=== PATIENT | male | born 1950 | race Caucasian/White ===

== ENCOUNTER 2018-02-02 10:15 | Day surgery (SDC) | payer MEDICARE ==
[~2018-02-02] VITALS: Ht 185.4 cm; Wt 103.5 kg
[~2018-02-02 10:15] MED LIST: ALBU0.086 INH; ASPI81TA82 PO; CLOP75 PO; DILTCD240 PO; FISH1000 PO; FLEX10TA PO; FLON0.053; FURO1TAB93 PO; IPRA18I INH; LISI2.5T55 PO; OMEP20TA PO; POTA-243 PO; PROT40TA PO; REST15CA PO; TAMS0.4C67 PO; TIOT18I INH; TRAM50TA PO; VITA500S3 PO
[2018-02-02] MEDS ORDERED: IOHEXOL 350 MG/ML 50 ML BTL (for Cath Lab) OTHER ONE (10:16)
[2018-02-02] MEDS ORDERED: NS 1000P @30 MLS/HR (KVO) IV SCH (10:45)
[2018-02-02 10:52] VITALS: BP 165/84; PULSE 57; RESP 17; O2SAT 98
[2018-02-02] MEDS ORDERED: TRAM50TA PO (11:09)
[2018-02-02] MEDS ORDERED: CYCL10TA PO (11:09)
[2018-02-02] MEDS ORDERED: NITR0.4S SL (11:09)
[2018-02-02] MEDS ORDERED: TAMS0.4C4 PO (11:09)
[2018-02-02] MEDS ORDERED: SIMV10TA PO (11:09)
[2018-02-02] MEDS ORDERED: RANI150T PO (11:09)
[2018-02-02] MEDS ORDERED: FLUT1SPR5 (11:09)
[2018-02-02] MEDS ORDERED: TEMA15CA PO (11:09)
[2018-02-02] MEDS ORDERED: AMLO5TAB2 PO (11:09)
[2018-02-02] MEDS ORDERED: ASPI-516 CHEW (11:09)
[2018-02-02] MEDS ORDERED: ALBU0.08 NEB (11:09)
[2018-02-02] MEDS ORDERED: HEPARIN-NS/PF INJ 500 ML ONE (13:09)
[2018-02-02] MEDS ORDERED: MIDAZOLAM HCL 2 MG/2 ML VIAL ONE ×2 (13:10→13:15)
[2018-02-02] MEDS ORDERED: NITROGLYCERIN INJ 5 ML ONE (13:10)
[2018-02-02] MEDS ORDERED: HEPARIN SODIUM - IV 10,000 UNITS/10 ML VIAL ONE (13:10)
--- NOTE | 2018-02-02 13:48 | CATHPROC ---
[facility] HIS Report Study Information Study Number Admission Scheduled Start Study Start [id number] Feb 02 2018 10:15AM 02/02/2018 Feb 02 2018 1:02PM [facility] Cardiac Catheterization Admit Source Facility Department Other [facility] - [facility] Physician and Clinical Staff Initial Michael Sifuentes Ophthalmic Surgical Assistant Ssuan Ellington,KIRT Recorder Rosie De La Paz ,BSN Scrub Deysi RinconRT(R) Procedures Performed Procedure Location (Site) Vessel Name Coronary Angiograms LCA Left Coronary Coronary Angiograms RCA Right Coronary L Heart Cath Equipment Time Data Warehouse Manager Description Size Mfg Part Number Used/Scraped TRANSDUCER, TRUWAVE [id number] 13:16 CASTILLO NOLAN * Used W/STOCKCOCK *[id number] *[id number] *[id number] 13:27 [employer]IG/[employer]ICAL ANGIOSEAL, FR6 VIP FR 6 Used *[id number] 13:16 [employer] BLANKET,WARM AIR CCL * Used *[id number] 13:16 [employer] PACK, CCL CUSTOM * Used *[id number] 13:16 [employer] PACER PEN, SKIN DUAL W/ RULER * Used *[id number] 13:16 [employer] MEDICAL SHEATH, FR6.5 PRELUDE 23CM FR 6.5 Used [id number] 13:16 [employer] MEDICAL WIRE, 3MMJ .035 180CM 180CM Used *[id number] 13:16 [employer]AMIC MANIFOLD, 4 PORT * Used *[id number] 13:16 [employer] OMNIPAQUE, 350 MG, 100ML 100ML [id number] Used Equipment Model, Serial, Lot Number and Expiration Data Description Model Number Serial Number Lot Number Expiration Date ANGIOSEAL, FR6 VIP [id number] 09-14-2018 History: Current Medications Medication Dosage/Unit Route Frequency Last Date/Time Taken ASA 81 mg 02/01/2018 History: Allergies Allergy Reaction No Known Allergies History: Risk Factors Family History of Hypertension Dyslipidemia Premature CAD Yes Yes No Prior Valve Prior PCI Prior PCIDate Prior CABG Surgery No Yes 03/15/2013 No Cerebrovascular Peripheral Artery Chronic Lung On Dialysis Diabetes Diabetes Therapy Disease Disease Disease No Yes No Yes Yes None History: Stress Tests Stress or Imaging Studies Performed Yes Standard Exercise Stress Stress Test Result Test Yes Positive History: NM/CV Data Previous Cath Date 03/15/2014 History: Other Current Smoker Method Quit Packs a Day Years Used Pack Years No Cigarettes 36 Years Ago 2 25 50 Labs Hgb (g/dl) Hct (%) WBC (l/cumm) Platelets (thousands) 11.60-17.00 35.00-51.00 4.00-11.00 150.00-450.00 14.0 43.5 10.5 333 Glucose (mg/dl) BUN (mg/dl) Creatinine (mg/dl) BUN:Creatinine (1:x) 74.00-106.00 7.00-18.00 0.50-1.30 10.00-20.00 103 13 0.7 18.6 Na (meq/l) K (meq/l) 136.00-145.00 3.50-5.10 136 4.3 INR (PTT:PT) 0.90-1.10 1 CPK-MB (ng/ML) 0.50-3.60 Not Drawn Medication Medication Total Dose (Bolus/Oral) Medication Total Dosage/Unit 1% XYLOCAINE 20 mL NITROGLYCERIN S/L 0.4 mg VERSED 3 mg Medications (Bolus/Oral) Medication Time Given Dosage/Unit Administered By Reason VERSED 02/02/2018 1:09:10 PM 2 mg Susan Ellington 2 mg VERSED given by Susan Ellington RN via Peripheral IV. Ordered by Michael Olson. 1% XYLOCAINE 02/02/2018 1:14:25 PM 20 mL Susan Ellington 20 mL 1% XYLOCAINE given by Susan Ellington RN in Right Groin via Subcutaneous. Ordered by Michael Olson. VERSED 02/02/2018 1:14:35 PM 1 mg Susan Ellington 1 mg VERSED given by Susan Ellington RN via Peripheral IV. Ordered by Michael Olson. NITROGLYCERIN S/L 02/02/2018 1:35:47 PM 0.4 mg Susan Ellington 0.4 mg NITROGLYCERIN S/L given in lab by Susan Ellington RN via Sublingual. Ordered by Dick Olson. Medication (Drip) Medication Time Given Dosage/Unit Concentration/Unit Diluent (ml) Solution IV Solutions 02/02/2018 1:08:43 PM 50 mL (IV) NaCl .9 IV Solutions given by Susan Ellington RN via Peripheral IV. Pump/Drip Flow using NaCl .9. Ordered by Michael Olson. at KVO Initial Case Assessment Cardiovascular HR Rhythm NIBP Chest Pain 58 sb 158/87 0 Edema Present Skin color Skin None Normal Warm Dry Circulatory - Right Pulses Dorsalis Pedis Femoral 2 2 Scale (0,1,2,3,4,d) Scale (0,1,2,3,4,d) Circulatory - Lower Extremities Color Lower Right Color Lower Left Normal Normal Neurological State Oriented to time-place- Alert Moves all extremities person Respiration - General Respiration Rate SpO2 (%) (B/min) 17 96 Final Case Assessment Cardiovascular HR Rhythm NIBP Chest Pain 76 sr 181/90 0 Edema Present Skin color Skin None Normal Warm Dry Circulatory - Right Pulses Dorsalis Pedis Femoral 2 2 Scale (0,1,2,3,4,d) Scale (0,1,2,3,4,d) Circulatory - Lower Extremities Color Lower Right Color Lower Left Normal Normal Neurological State Oriented to time-place- Alert Moves all extremities person Respiration - General Respiration Rate SpO2 (%) (B/min) 18 95 Chronological Log Time Study Chronological Log 12:58:37 Patient arrived via Bed. 12:58:54 MD arrived. 13:01:46 Patient Name, D.O.B, / Armband Verified By R.N. 13:01:47 Consent signed by the physician and the patient and verified by the [facility] staff. 13:01:48 Pre-op and post- op instructions given; patient acknowledges understanding of instructions. 13:01:51 Patient has been NPO for More than 6Hrs. 13:01:51 Skin Breakdown- scabs to BUE Vitals capture started with the following parameters, Patient=Adult, Interval=5 min, Initial Pr oewtfr=167 mmHg, 13:03:36 Deflation Rate=5 mmHg, Cuff placed on Left Arm 13:05:00 HR=57 bpm, MUDH=005/87 mmhg, SpO2=99.0 %, Resp=17 B/min, Pain=0, Blank=10, Curran=2 Assessment: Initial Case, HR=58 BPM, Rhythm=sb, QYDW=465/87 mmhg, Chest Pain=0, Edema=None, Col or=Normal, Skin = Warm, Dry Right Pulses: Arik Ped=2, Femoral=2 13:06:11 Lower Right Extremities: Color=Normal Lower Left Extremities: Color=Normal Neurological: State=Alert, Ox3, ESPARZA Respiration: Resp=17 B/min, SpO2=96 % 13:06:31 A # 20 IV was noted in the Antecubital (left). Grade = 0 IV Solutions given by Susan Ellington RN via Peripheral IV. Pump/Drip Flow using NaCl .9. Orde red by Michael Olson. 13:08:43 at KVO 13:08:58 Bilateral groins prepped with 2% chlorhexidine, and draped after a 3 minute waiting time. 13:09:10 2 mg VERSED given by Susan Ellington RN via Peripheral IV. Ordered by Michael Olson. 13:09:22 HR=57 bpm, DTPY=683/71 mmhg, SpO2=97.0 %, Resp=24 B/min, Pain=0, Blank=10, Curran=2 13:12:09 History and physical on the chart or being dictated. 13:13:16 Verbal Stimulation=2 Physical Stimulation=2 Airway=2 Respiration=2 TOTAL=8. (0=absent, 1=li mited, 2=present) 13:13:26 Pressure channel 1 zeroed. Time Out. Correct patient, correct procedure, correct physician, labs, allergies, and equipment verified with chemical lab supervisor 13:14:20 team present. Fire risk assesment completed (see hard stop sheet for coding). Time Out Conc urred by MD and individual staff in procedure. 13:14:21 HR=56 bpm, LAHP=389/72 mmhg, SpO2=96.0 %, Resp=26 B/min, Pain=0, Blank=10, Curran=2 13:14:23 Case Start 13:14:25 20 mL 1% XYLOCAINE given by Susan Ellington RN in Right Groin via Subcutaneous. Ordered by Michael Olson. 13:14:35 1 mg VERSED given by Susan Ellington RN via Peripheral IV. Ordered by Michael Olson. 13:17:37 Access site was Right Femoral Artery. 13:17:50 A SHEATH, FR6.5 PRELUDE 23CM FR 6.5 was advanced into the Fem Art (right) using the Percuta neous technique. A JL 4.0 INFINITI CATHETER FR 6 was advanced over a wire. OMNIPAQUE, 350 MG, 100ML 100ML was us ed for 13:18:29 injections. 13:18:49 Reference ECG taken Recorded Pressure: Ao, HR=56, Condition=Condition 1 13:19:13 (Aorta) Ao 151/67/102 13:19:22 HR=55 bpm, IULM=972/76 mmhg, SpO2=95.0 %, Resp=14 B/min, Pain=0, Blank=10, Curran=2 13:19:40 The LCA was injected and visualized at various angles. OMNIPAQUE, 350 MG, 100ML 100ML used . After removing the current catheter a JR 4.0 INFINITI CATHETER FR 6 was advanced over a WIRE, 3 MMJ .035 180CM 13:21:54 180CM. 13:23:04 The RCA was injected and visualized at various angles. OMNIPAQUE, 350 MG, 100ML 100ML used . 13:23:49 Catheter was removed 13:24:56 HR=77 bpm, XIOE=673/94 mmhg, SpO2=95.0 %, Resp=21 B/min, Pain=0, Blank=10, Curran=2 13:26:11 An injection in the Fem Art (right) was made through the SHEATH, FR6.5 PRELUDE 23CM FR 6.5. 13:28:44 ANGIOSEAL, FR6 VIP FR 6 placement in the Fem Art (right) 13:29:20 Case End (Physician broke scrub) 13:29:23 Sterile dressing applied to site 13:29:24 HR=71 bpm, ALVQ=411/90 mmhg, SpO2=95.0 %, Resp=11 B/min, Pain=0, Blank=10, Curran=2 13:29:25 No case complications noted. ::26 Cine recording checked. 13:30:24 Bedside Report will be given. :: Implantable Device card placed in patient's chart. 13:30:39 A Left Heart Cath was performed. Assessment: Final Case, HR=76 BPM, Rhythm=sr, HOJR=920/90 mmhg, Chest Pain=0, Edema=None, Color =Normal, Skin = Warm, Dry Right Pulses: Arik Ped=2, Femoral=2 13:30:50 Lower Right Extremities: Color=Normal Lower Left Extremities: Color=Normal Neurological: State=Alert, Ox3, ESPARZA Respiration: Resp=18 B/min, SpO2=95 % 13:34:21 HR=76 bpm, BGNK=816/82 mmhg, SpO2=95.0 %, Pain=0, Blank=10, Curran=2 13:35:47 0.4 mg NITROGLYCERIN S/L given in lab by Susan Ellington RN via Sublingual. Ordered by Michael Collazo. 13:40:14 Vitals capture stopped. 13:48:09 Patient moved to [facility] End Study - Contrast Media Used In Study Contrast Total Opened (mL) Total Used (mL) Total Wasted (mL) Omnipaque 50 50 0 End Study - Maximum Contrast Load Max Contrast Load (mL) 739.3 End Study - Radiation Exposure Fluoro Time (minutes) 1.3 End Study - Patient Disposition Complications Transferred To No Cigarette Vendor Holding
--- NOTE | 2018-02-02 14:33 | MA ---
cc: Michael Olson MD DATE: 02/02/2018 PROCEDURAL STATEMENTS: As per the lab associate. RESULTS: Aortic pressure was 150/60. CORONARY ANGIOGRAPHY: Left main coronary was normal. Left anterior descending artery demonstrated luminal irregularities throughout its course. A 30-40% stenosis was present in the proximal-third of the artery. No other significant lesions were seen. Left circumflex artery was essentially normal throughout its course. The right coronary was anatomically dominant, a relatively large vessel. There was no significant stenoses seen. At the end of the procedure, the groin was sealed with Angio-Seal technique. CONCLUSIONS: Mild coronary artery disease as described above. RECOMMENDATIONS: Medical management will be continued. Michael Olson MD DLW/ALMA , 01:36 PM , 01:52 PM
== END 2018-02-02 16:09 | disposition home or self-care (01) ==
LOC: HCAT 10:15 → HDIC 10:16 → HCAT 16:09
PROVIDERS: ATTEND Internal Medicine Cardiovascular Disease
DX: I25.10 Atherosclerotic heart disease of native coronary artery without angina pectoris (principal)
CPT/HCPCS: 93454; 99152; C1760; C1769; C1893; G0269; J1644; J2250; J3010; Q9967